=== PATIENT | female | born 1980 | race Caucasian/White ===

== ENCOUNTER 2019-07-04 15:10 | Emergency (ER) | payer OTHER ==
[2019-07-04 15:15] VITALS: BP 110/43; PULSE 76; TEMP 98; BMI 24.3
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
[2019-07-04] MEDS ORDERED: IBUPROFEN 600 MG TABLET (FP) PO ONE ×2 (17:47→18:01)
== END 2019-07-04 18:06 | disposition home or self-care (01) ==
LOC: JERFT 15:10
DX: S79.811A Other specified injuries of right hip, initial encounter (principal); M25.511 Pain in right shoulder; V03.10XA Pedestrian on foot injured in collision with car, pick-up truck or van in traffic accident, initial encounter; Y92.414 Local residential or business street as the place of occurrence of the external cause; Y93.89 Activity, other specified; Y99.8 Other external cause status
CPT/HCPCS: 72170-TC-FY; 73502-TC-RT-FY; 84703; 99281-25